=== PATIENT | male | born 1965 | race Caucasian/White ===

== ENCOUNTER 2016-05-01 06:42 | Emergency (ER) | payer OTHER ==
[~2016-05-01] VITALS: Wt 63.5 kg
[~2016-05-01 06:42] MED LIST: BACTDS PO; CEPH-443 PO; IBUP400T22 PO
[2016-05-01] MEDS ORDERED: morphine 4 MG/ML VIAL IV STA (10:00)
[2016-05-01] MEDS ORDERED: ONDANSETRON 4 MG INJ IV STA (10:00)
[2016-05-01] MEDS ORDERED: SOD CHLORIDE 0.9% 500 ML IV STA (10:00)
[2016-05-01] MEDS ORDERED: FAMOTIDINE 20 MG INJ IV STA (10:00)
[2016-05-01 10:26] LABS: ALBUMIN 2.5 g/dl (3.3-4.9); POTASSIUM 4.5 mmol/L (3.5-5.1)
[2016-05-01 10:28] LABS: BILIRUBIN,INDIRECT 3.9 mg/dl (0-1.1); BILIRUBIN,TOTAL 3.9 mg/dl (0.2-1.3); CREATININE 0.72 mg/dl (0.61-1.24)
[2016-05-01 10:29] LABS: ALBUMIN/GLOBULIN RATIO 0.64; TOTAL PROTEIN 6.4 g/dl (6.1-8.1)
[2016-05-01 10:33] LABS: ADD UMIC NO; URINE BILIRUBIN (Dip) NEGATIVE (NEGATIVE); URINE BLOOD (Dip) NEGATIVE (NEGATIVE); URINE COLOR YELLOW (YELLOW); URINE GLUCOSE (Dip) NEGATIVE (NEGATIVE); URINE KETONES (Dip) NEGATIVE (NEGATIVE); URINE LEUKOCYTE ESTERASE (Dip) NEGATIVE (NEGATIVE); URINE NITRITE (Dip) NEGATIVE (NEGATIVE); URINE TOTAL PROTEIN (Dip) NEGATIVE (NEGATIVE); URINE UROBILINOGEN (Dip) 1.0 E.U./dL (0.1-1.0)
[2016-05-01 10:33] LABS: BASOPHILS % 0.5 % (0.0-2.0); EOSINOPHILS # 0.5 10^3/ul (0.0-0.5); EOSINOPHILS % 8.5 % (0.0-7.0); HEMATOCRIT 38.3 % (42.0-52.0); HEMOGLOBIN 13.3 g/dl (14.0-18.0); LYMPHOCYTES # 1.2 10^3/ul (0.8-2.9); LYMPHOCYTES % 18.9 % (15.0-51.0); MEAN CORPUSCULAR HEMOGLOBIN 33.7 pg (29.0-33.0); MEAN CORPUSCULAR HGB CONC 34.7 g/dl (32.0-37.0); MEAN CORPUSCULAR VOLUME 97.1 fl (82.0-101.0); MEAN PLATELET VOLUME 9.3 fl (7.4-10.4); MONOCYTE # 0.6 10^3/ul (0.3-0.9); MONOCYTES % 9.3 % (0.0-11.0); NEUTROPHIL # 3.9 10^3/ul (1.6-7.5); NEUTROPHILS % 62.8 % (39.0-77.0); RED BLOOD COUNT 3.95 10^6/ul (4.70-6.10); RED CELL DISTRIBUTION WIDTH 14.5 % (11.5-14.5); UNCORRECTED WBC 6.2 10^3/ul (4.8-10.8); WHITE BLOOD COUNT 6.2 10^3/ul (4.8-10.8)
[2016-05-01 10:50] LABS: CONDITION 1; LH ANALYZER COMMENTS 1
[2016-05-01] MEDS ORDERED: PROP10TA6 PO (11:18)
--- NOTE | 2016-05-01 11:23 | RADRPT ---
PROCEDURE: CT Abdomen and Pelvis without contrast. CLINICAL INDICATION: Abdominal and pelvic pain. TECHNIQUE: CT scan of the abdomen and pelvis without contrast was performed. Coronal and sagittal reformatted images were obtained from the axial source images. Images were reviewed on a high-resolu [employer] PACS workstation. Total exam DLP is 557.86 mGy-cm. CTDIvol is 8.78 mGy. One or more of the fo llowing dose reduction techniques were used: Automated exposure control, adjustment of the mA and/or kV according to patient size, use of iterative reconstruction technique. COMPARISON: 11/08/2013 FINDINGS: There is mild atelectasis at the right lung base posteriorly. The lung bases are otherwise normal. There is no pleural effusion or pericardial effusion. The heart size is normal. The liver is small and has a nodular surface and relative enlargement of the left lobe consistent wi th cirrhosis. There is no definite focal hepatic lesion. The gallbladder and bile ducts are normal. The spleen is enlarged. There is portal hypertension with multiple dilated veins in the upper abdom en and recanalization of the umbilical vein. The inferior epigastric veins, azygos vein, and hemiaz ygous veins are also dilated. Both adrenals are normal with no enlargement or mass. The pancreas is unremarkable with no mass or evidence of pancreatitis. There is no renal mass or hydronephrosis. There is no renal calculus or ureteral calculus. The abdominal aorta is not dilated. There is no retroperitoneal lymphadenopathy or mass. There is no pelvic lymphadenopathy or mass. The bladder and distal ureters are normal. The appendix is well seen and appears normal. There is diverticulosis of the colon without evidence of diverticulitis. There is diffuse thickenin g of the wall of the stomach. The bowel and mesentery are otherwise normal. There is moderate ascites. There is no free air. There are degenerative changes of the spine. There is no fracture or lytic lesion. IMPRESSION: 1. Mild atelectasis at the right lung base posteriorly. 2. Small nodular liver consistent with cirrhosis. 3. Splenomegaly. 4. Portal hypertension with dilated veins in the upper abdomen and recanalization of the umbilical vein. 5. Dilated inferior epigastric veins, azygos vein, and radha azygos vein. 6. Normal appendix. 7. Diverticulosis of the colon without evidence of diverticulitis. 8. Diffuse thickening of the wall of the stomach, nonspecific. Clinical correlation advised. 9. Moderate ascites. 10. Degenerative changes of the spine. RPTAT: QQ .Pawel Ordaz MD, Date Time Electronically viewed and signed by .Pawel Ordaz MD, MD on 05/01/2016 11:23 .R/
[2016-05-01] MEDS ORDERED: METR500T PO (11:30)
--- NOTE | 2016-05-01 11:30 | ERD ---
ER Documentation Chief Complaint Date/Time DATE: 05/01/16 TIME: 11:28 Chief Complaint ABDOMINAL PAIN WITH UMBILICAL HERNIA NOTED, DIARRHEA. BUT NO N/V HPI This is a 50-year-old male who presents to the emergency room with a chief complaint of abdominal cramping, nausea and diarrhea. The patient states that he has had diarrhea for approximately 1 weeks duration. This is foul smelling and watery. He does say he recently traveled to [facility]. He also states that he has a history of hepatitis C and cirrhosis and umbilical hernia ROS All systems reviewed and are negative except as per history of present illness. Medications Home Meds Reported Medications Propranolol Hcl* (Propranolol Hcl*) 10 Mg Tablet, 10 MG PO BID, TAB 05/01/16 Discontinued Scripts Ibuprofen* (Motrin*) 400 Mg Tab, 400 MG PO Q6, #12 TAB Prov:GISELJYOTSNA DO 03/22/16 Cephalexin* (Keflex*) 500 Mg Capsule, 500 MG PO TID for 10 Days, CAP Prov:JYOTSNA BATRES DO 03/22/16 Sulfamethoxazole-Trimethoprim* (Bactrim* DS) 800-160 Mg Tab, 1 TAB PO BID for 10 Days, TAB Prov:GISELJYOTSNA DO 03/22/16 Allergies Allergies: Coded Allergies: No Known Allergy (Unverified , 05/01/16) PMhx/Soc History of Surgery: Yes (R shoulder sx.) Anesthesia Reaction: No Hx Neurological Disorder: No Hx Respiratory Disorders: No Hx Cardiac Disorders: No Hx Psychiatric Problems: No Hx Miscellaneous Medical Probl: Yes (liver cirrosis, Hep C) Hx Alcohol Use: No Hx Substance Use: No Hx Tobacco Use: No Smoking Status: Never smoker Physical Exam Vitals Vital Signs Date Time Temp Pulse Resp B/P Pulse Ox O2 Delivery O2 Flow Rate FiO2 05/01/16 06:52 97.9 68 20 106/60 98 Physical Exam INITIAL VITAL SIGNS: Reviewed by me GENERAL: The patient is well developed and appropriate for usual state of health in no apparent distress HEENT: Pupils equal, round, and reactive to light. EOMI. There is no scleral icterus. NECK: C-spine is soft and supple, there is no meningismus. There is no cervical lymphadenopathy. LUNGS: Clear to auscultation bilaterally. There are no rales, wheezes or rhonchi. HEART: Regular rate and rhythm, no murmurs, clicks, rubs or gallops. ABDOMEN: Reducible periumbilical hernia, soft, non-tender, non-distended. There are bowel sounds in all four quadrants. No rebound or guarding. EXTREMITIES: There is no peripheral cyanosis or edema. No focal swelling or erythema. NEUROLOGICAL: The patient moves all four extremities with 5/5 strength. Cranial nerves II - XII are intact. Normal gait. Alert and oriented SKIN: There is no apparent rash or petechiae. HEME/LYMPHATIC: There is no evidence of excessive bruising or lymphedema. PSYCHIATRIC: The patient does not appear anxious or depressed. Result Diagram: 05/01/16 1003 05/01/16 1003 Results 24 hrs Laboratory Tests Test 05/01/16 10:03 05/01/16 10:18 Alanine Aminotransferase (ALT/SGPT) 76IU/L Albumin 2.5g/dl Albumin/Globulin Ratio 0.64 Alkaline Phosphatase 221IU/L Anion Gap 13 Aspartate Amino Transf (AST/SGOT) 96IU/L Basophils # 0.010^3/ul Basophils % 0.5% Blood Morphology Comment Blood Urea Nitrogen 6mg/dl Calcium Level 8.0mg/dl Carbon Dioxide Level 27mmol/L Chloride Level 108mmol/L Creatinine 0.72mg/dl Direct Bilirubin 0.00mg/dl Eosinophils # 0.510^3/ul Eosinophils % 8.5% Globulin 3.90g/dl Glucose Level 129mg/dl Hematocrit 38.3% Hemoglobin 13.3g/dl Indirect Bilirubin 3.9mg/dl Lipase 192U/L Lymphocytes # 1.210^3/ul Lymphocytes % 18.9% Mean Corpuscular Hemoglobin 33.7pg Mean Corpuscular Hemoglobin Concent 34.7g/dl Mean Corpuscular Volume 97.1fl Mean Platelet Volume 9.3fl Monocytes # 0.610^3/ul Monocytes % 9.3% Neutrophils # 3.910^3/ul Neutrophils % 62.8% Nucleated Red Blood Cells # 0.010^3/ul Nucleated Red Blood Cells % 0.0/100WBC Platelet Count Pending Potassium Level 4.5mmol/L Red Blood Count 3.9510^6/ul Red Cell Distribution Width 14.5% Sodium Level 143mmol/L Total Bilirubin 3.9mg/dl Total Protein 6.4g/dl White Blood Count 6.210^3/ul Urine Bilirubin NEGATIVE Urine Clarity CLEAR Urine Color YELLOW Urine Glucose NEGATIVE% Urine Hemoglobin NEGATIVE Urine Ketones NEGATIVE Urine Leukocyte Esterase NEGATIVE Urine Nitrite NEGATIVE Urine Specific [place] <=1.005 Urine Total Protein NEGATIVE Urine Urobilinogen 1.0 E.U./dL Urine pH 7.0 Current Medications Medications (Trade) Dose Ordered Sig/Nikki Route PRN Reason Start Time Stop Time Status Last Admin Dose Admin Sodium Chloride (NS) 500 ml @ 500 mls/hr Q1H STAT IV 05/01/16 10:00 05/01/16 10:59 DC 05/01/16 10:10 Morphine Sulfate (morphine) 4 mg ONCE STAT IV 05/01/16 10:00 05/01/16 10:02 DC 05/01/16 10:11 Ondansetron HCl (Zofran Inj) 4 mg ONCE STAT IV 05/01/16 10:00 05/01/16 10:02 DC 05/01/16 10:10 Famotidine (Pepcid Iv) 20 mg ONCE STAT IV 05/01/16 10:00 05/01/16 10:02 DC 05/01/16 10:10 Procedures/MDM CT abdomen pelvis without: 1. Mild atelectasis at the right lung base posteriorly. 2. Small nodular liver consistent with cirrhosis. 3. Splenomegaly. 4. Portal hypertension with dilated veins in the upper abdomen and recanalization of the umbilical vein. 5. Dilated inferior epigastric veins, azygos vein, and radha azygos vein. 6. Normal appendix. 7. Diverticulosis of the colon without evidence of diverticulitis. 8. Diffuse thickening of the wall of the stomach, nonspecific. Clinical correlation advised. 9. Moderate ascites. 10. Degenerative changes of the spine. This 50-year-old male presents to the ER for evaluation of abdominal cramping, diarrhea and mild nausea. He recently traveled to [facility] and states his diarrhea is watery and foul-smelling. I do believe this patient is suffering from traveler's diarrhea. This patient had a CAT scan of the abdomen and pelvis which does not show any acute abnormalities. He does have portal hypertension and dilated veins which is common with cirrhosis. He is hemodynamically stable at this time, no signs of obstruction or incarcerated hernia. He will be discharged home with a prescription for Flagyl. Differential diagnoses entertained was broad with potential high acuity. Patient has been evaluated for appendicitis, cholecystitis, and other high risk medical and surgical causes of abdominal pain. Ultimately the patient's evaluation is nondiagnostic. Based on the patient's lack of risk factors, as well as the patient's clinical, laboratory, and imaging data, the patient appears to be low risk for these high risk causes of abdominal pain. Departure Diagnosis: Primary Impression: Abdominal pain Additional Impressions: Travelers' diarrhea Normocytic anemia Condition: Stable DOLORES BOLANOS DO May 01, 2016 11:30
[2016-05-01 11:33] LABS: PLATELET COUNT 52 10^3/UL (140-440)
[2016-05-01 12:20] LABS: PLATELET ESTIMATE PLT APPEAR DECREASED
== END 2016-05-01 11:50 | disposition home or self-care (01) ==
LOC: E/R 06:42
DX: R10.9 Unspecified abdominal pain (principal); R19.7 Diarrhea, unspecified; D64.9 Anemia, unspecified; R11.0 Nausea
CPT/HCPCS: 74176; 80053; 81003; 83690; 85025; J2270; J2405; J7040; Z7610; 36415; 96374; 96375

== ENCOUNTER 2018-06-05 06:56 | Emergency (ER) | payer BC, OTHER ==
[~2018-06-05] VITALS: Wt 65.0 kg
[~2018-06-05 06:56] MED LIST changes: -BACTDS PO; -CEPH-443 PO; -IBUP400T22 PO; +METR500T PO; +PROP10TA6 PO
[2018-06-05] MEDS ORDERED: ONDANSETRON 4 MG INJ IV STA (07:59)
[2018-06-05] MEDS ORDERED: morphine 4 MG/ML VIAL IV STA (07:59)
[2018-06-05] MEDS ORDERED: IOHEXOL 300MG/ML 150 ML BTL ONE (09:09)
[2018-06-05] MEDS ORDERED: SOD CHLORIDE 0.9% 100 ML ONE (09:09)
[2018-06-05] MEDS ORDERED: DOCU-144 PO (11:29)
[2018-06-05] MEDS ORDERED: HYDR-4011 PO (11:29)
[2018-06-05 11:34] VITALS: BP 115/72; PULSE 89; RESP 17
--- NOTE | 2018-06-05 14:56 | ERD ---
ER Documentation Chief Complaint Chief Complaint LOWER ABD PAIN X1 WEEK, STATES HE FEEL LIKE A "BALL" INSIDE HPI This is a very pleasant 53-year-old male with a known history of liver cirrhosis secondary to hepatitis C. The patient indicates that for the past week he has been experiencing mild abdominal pain most prominent in the left lower quadrant. He states he feels as though there is a mass in the groin region. He states t hat the mass does increase in size when he comes to have a bowel movement or undergoes heavy lifting. He said no fevers no shaking or chills. He denies any hematuria. He denies any abdominal distention. He has had no hemoptysis no hematemesis no melanotic stools. He did not take any analgesic medication prior to arrival. He states the pain is intermittent. The pain is 4 out of 10 in intensity he did not take any analgesic medication prior to arrival. ROS All systems reviewed and are negative except as per history of present illness. Medications Home Meds Active Scripts Docusate Sodium* (Colace*) 100 Mg Capsule, 100 MG PO TID, #30 CAP Prov:MARC BLANKENSHIP MD 06/05/18 Hydrocodone/Acetaminophen ([place] 5-325 Tablet) 1 Each Tablet, 1 TAB PO Q6H PRN for PAIN, #20 TAB Prov:MARC BLANKENSHIP MD 06/05/18 Metronidazole* (Flagyl*) 500 Mg Tablet, 500 MG PO TID for 7 Days, TAB Prov:DOLORES BOLANOS DO 05/01/16 Reported Medications Propranolol Hcl* (Propranolol Hcl*) 10 Mg Tablet, 10 MG PO BID, TAB 05/01/16 Allergies Allergies: Coded Allergies: No Known Allergy (Unverified , 05/01/16) PMhx/Soc History of Surgery: Yes (R shoulder sx.) Anesthesia Reaction: No Hx Neurological Disorder: No Hx Respiratory Disorders: No Hx Cardiac Disorders: No Hx Psychiatric Problems: No Hx Miscellaneous Medical Probl: Yes (liver cirrosis, Hep C) Hx Alcohol Use: Yes (former drinker, no longer drinks) Hx Substance Use: No Hx Tobacco Use: No Smoking Status: Never smoker Physical Exam Vitals Vital Signs Date Temp Pulse Resp B/P (MAP) Pulse Ox O2 O2 Flow FiO2 Time Delivery Rate 06/05/18 97.8 89 17 115/72 98 Room Air 11:34 (86) 06/05/18 97.8 100 17 126/69 97 06:59 (88) Physical Exam Constitutional:Well-developed. Well-nourished. HEENT:Normocephalic. Atraumatic.Pupils were equal round reactive to light. Moist mucous membranes.No tonsillar exudates. Neck: No nuchal rigidity. No lymphadenopathy. No posterior cervical spine tenderness or step-offs. Respiratory: Not using accessory muscles of respiration.Lungs were clear to auscultation bilaterally. No rhonchi. No rales. No wheezing. Cardiovascular: Regular rate regular rhythm.No murmurs. No rubs were appreciated.S1, S2 normal. Distal pulses are palpable 2+ bilaterally. GI: Abdomen was soft. Hepatomegaly with mild tenderness of the left lower quadrant. Small reducible hernia in the left inguinal region with no surrounding tenderness.. Non Distended and no fluid thrill. No pulsatile abdominal masses or bruits. No rebound. No guarding. Bowel sounds were present and normal. Muscle skeletal: Full range of motion of both the upper and lower extremities bilaterally.Normal muscle tone.No assymetrical calf tenderness or swelling. Skin: No petechia, no purpura. No lesions on the palms or the soles of the feet. No maculopapular rash. NEURO: Patient was alert, awake, orientated x3.No facial droop. Gait observed and normal with no ataxia.Speech had regular rate and rhythm. No focal neurological deficits. Result Diagram: 06/05/18 0818 06/05/18 0818 Results 24 hrs Laboratory Tests Test 06/05/18 08:18 White Blood Count 5.5 10^3/ul Red Blood Count 3.62 10^6/ul Hemoglobin 10.3 g/dl Hematocrit 30.9 % Mean Corpuscular Volume 85.4 fl Mean Corpuscular Hemoglobin 28.5 pg Mean Corpuscular Hemoglobin Concent 33.3 g/dl Red Cell Distribution Width 14.5 % Platelet Count 39 10^3/UL Mean Platelet Volume 11.4 fl Immature Granulocytes % 0.500 % Neutrophils % 65.7 % Lymphocytes % 16.5 % Monocytes % 13.5 % Eosinophils % 3.1 % Basophils % 0.7 % Nucleated Red Blood Cells % 0.0 /100WBC Immature Granulocytes # 0.030 10^3/ul Neutrophils # 3.6 10^3/ul Lymphocytes # 0.9 10^3/ul Monocytes # 0.7 10^3/ul Eosinophils # 0.2 10^3/ul Basophils # 0.0 10^3/ul Nucleated Red Blood Cells # 0.0 10^3/ul Prothrombin Time 16.7 Sec Prothrombin Time Ratio 1.3 INR International Normalized Ratio 1.34 Activated Partial Thromboplast Time 30.9 Sec Urine Color [place] Urine Clarity CLEAR Urine pH 6.0 Urine Specific [place] 1.019 Urine Ketones NEGATIVE mg/dL Urine Nitrite NEGATIVE mg/dL Urine Bilirubin NEGATIVE mg/dL Urine Urobilinogen 2+ mg/dL Urine Leukocyte Esterase NEGATIVE Kenny/ul Urine Hemoglobin NEGATIVE mg/dL Urine Glucose NEGATIVE mg/dL Urine Total Protein NEGATIVE mg/dl Sodium Level 136 mmol/L Potassium Level 3.8 mmol/L Chloride Level 105 mmol/L Carbon Dioxide Level 25 mmol/L Anion Gap 6 Blood Urea Nitrogen 8 mg/dl Creatinine 0.76 mg/dl Est Glomerular Filtrat Rate mL/min > 60 mL/min Glucose Level 199 mg/dl Calcium Level 8.3 mg/dl Total Bilirubin 3.2 mg/dl Direct Bilirubin 0.00 mg/dl Indirect Bilirubin 3.2 mg/dl Aspartate Amino Transf (AST/SGOT) 53 IU/L Alanine Aminotransferase (ALT/SGPT) 44 IU/L Alkaline Phosphatase 200 IU/L Troponin I < 0.012 ng/ml Total Protein 6.4 g/dl Albumin 2.8 g/dl Globulin 3.60 g/dl Albumin/Globulin Ratio 0.77 Amylase Level 114 U/L Lipase 214 U/L Current Medications Medications Dose Sig/Nikki Start Time Status Last (Trade) Ordered Route PRN Stop Time Admin Dose Reason Admin Morphine 4 mg ONCE STAT 06/05/18 DC 06/05/18 Sulfate IV 07:59 08:43 (morphine) 06/05/18 08:01 Ondansetron 4 mg ONCE STAT 06/05/18 DC 06/05/18 HCl (Zofran IV 07:59 08:43 Inj) 06/05/18 08:01 Iohexol 150 ml STK-MED 06/05/18 DC (Omnipaque ONCE .ROUTE 09:09 300mg/ ml) 06/05/18 09:10 Sodium 100 ml @ ud STK-MED 06/05/18 DC Chloride ONCE .ROUTE 09:09 06/05/18 09:10 Procedures/[facility] This patient presented to the emergency department with abdominal pain and was seen and evaluated by myself. My differential diagnosis included but was not limited to abdominal aortic aneurysm, appendicitis, pancreatitis, perforated peptic ulcer, perforated viscus, Boerhaave's syndrome or visceral pain such as diverticulitis, DKA, esophagitis, hepatitis or bowel obstruction. The patient was placed on a monitor worker, continuous pulse oximetry, and IV access was established by nursing staff. The patient was given intravenous morphine and Zofran. I did obtain a CT scan of the abdomen which indicated the following: Shrunken cirrhotic liver. Patent portal vein. Extensive varices with splenomegaly and small volume ascites compatible with portal hypertension. No evidence of urolithiasis, obstructive uropathy, diverticulitis or appendic itis. Elevated right hemidiaphragm. Right basilar atelectasis. Question diffuse thickening wall of stomach. This may be related to venous congestion. Patient no leukocytosis no severe electrolyte abnormalities. The patient did have a small reducible hernia in the left inguinal region. There is no evidence of spiculation hernia was not seen on the CT scan. The findings on the CT scan were discussed with the patient he does states he has a history of alcohol abuse. There is no physical exam findings to suggest spontaneous bacterial peritonitis. The patient's pain had resolved. I do feel he can be safely discharged with close outpatient follow-up. The patient was discharged home in fair condition. They were instructed to return to the emergency department at any time if there was any worsening of their condition. The patient stated they would follow up with their PCP in the next 24-48 hours to initiate a suitable medication regimen under the care of their PCP as well as to allow their PCP to monitor any drug reactions. The patient was discharged home with prescriptions after they gave informed consent to the new medication. They were also fully informed by myself on the adverse effects and adverse drug interactions in order to provide adequate safeguards to prevent possible adverse reactions to medications. Departure Diagnosis: Primary Impression: Abdominal pain Abdominal location: left lower quadrant Qualified Codes: R10.32 - Left lower quadrant pain Additional Impression: Inguinal hernia Obstruction and gangrene presence: without obstruction or gangrene Laterality: unilateral Recurrence: non-recurrent Qualified Codes: K40.90 - Unilateral inguinal hernia, without obstruction or gangrene, not specified as recurrent Condition: Fair Patient Instructions: Hernia (Inguinal, Ventral, Umbilical), Abdominal Pain, Unkown Cause, (Male) MARC BLANKENSHIP MD Jun 05, 2018 14:56
== END 2018-06-05 11:36 | disposition home or self-care (01) ==
LOC: E/R 06:56
DX: K40.90 Unilateral inguinal hernia, without obstruction or gangrene, not specified as recurrent (principal)
CPT/HCPCS: 74177; 80053; 81003; 82150; 83690; 84484; 85025; 85610; 85730; 87086; 93005; 96374; 96375; J2270; J2405; Q9967; Z7502; Z7610